=== PATIENT | female | born 1965 | race Caucasian/White ===

== ENCOUNTER 2020-12-08 18:02 | Emergency (ER) | payer MEDICARE, MEDICAID ==
[~2020-12-08] VITALS: Ht 165.1 cm; Wt 144.0 kg
[2020-12-08 18:06] VITALS: BP 126/73
--- NOTE | 2020-12-08 20:17 | NUR ---
COMMUNICATIONS PROFESSOR: PT SEEN BY ZION ANNE IN TRIAGE FOR PIT. PT REPORTS INCREASED SOB AND SWELLING OF BILATERAL LEGS.
--- NOTE | 2020-12-08 20:18 | NUR ---
DEVIN RN: TECH IN ROOM DOING EKG
[2020-12-08 21:37] LABS: BASOPHILS % (AUTO) 1 % (0-1); EOSINOPHILS % (AUTO) 2 % (1-7); LYMPHOCYTES % (AUTO) 9 % (22-44); MEAN CORPUSCULAR HEMOGLOBIN 27.3 pg (27.0-34.8); MEAN CORPUSCULAR HGB CONC 31.7 g/dL (32.4-35.8); MEAN PLATELET VOLUME 8.2 fL (7.4-10.4); MONOCYTES % (AUTO) 7 % (2-9); NEUTROPHILS % (AUTO) 81 % (42-75); PLATELET COUNT 348 x10^3/uL (130-400); RED CELL DISTRIBUTION WIDTH 19.3 % (9.6-15.2)
[2020-12-08 21:49] LABS: ALBUMIN 3.2 g/dL (3.4-5.0); ANION GAP 7 mmol/L (5-15); CALCIUM 9.1 mg/dL (8.5-10.1); CHLORIDE 107 mmol/L (98-107)
[2020-12-08 21:54] LABS: ALANINE AMINOTRANSFERASE 18 U/L (12-78); ALKALINE PHOSPHATASE 73 U/L (45-117); BILIRUBIN,TOTAL 0.4 mg/dL (0.2-1.0); CREATININE 0.76 mg/dL (0.55-1.02); TOTAL PROTEIN 8.4 g/dL (6.4-8.2); TROPONIN I < 0.015 ng/mL (0.000-0.045)
--- NOTE | 2020-12-08 22:16 | NUR ---
PT AMBULATORY BACK TO ROOM
--- NOTE | 2020-12-08 22:34 | NUR ---
PT REFUSING TO GET INTO [facility] REFUSING MONITORING. PT STS SHE WAS AT [facility] ON SUNDAY AND DX WITH INFECTION AND TOOK ONE PILL WHILE SHE WAS THERE BUT DID NOT GET MORE AFTER LEAVING. PT STS HER HEELS ARE CRACKED AND DRY AND WANTS SOMEONE TO TAKE CARE OF THEM.
--- NOTE | 2020-12-08 22:37 | NUR ---
PROVIDER AT BEDSIDE FOR EVAL
--- NOTE | 2020-12-08 23:07 | NUR ---
PT TO [facility] AT THIS TIME
--- NOTE | 2020-12-08 23:10 | NUR ---
US AT BEDSIDE AT THIS TIME
[2020-12-08] MEDS ORDERED: NEOSPORIN OINT. PKT 1 PACKET ONE (23:46)
--- NOTE | 2020-12-09 00:23 | NUR ---
Patient/Caregiver given discharge instructions and they have confirmed that they understand the instructions. Patient ambulatory with steady gait. NAD, all questions answered appropriately, denies additional needs at this time. No personal belongings left in room after discharge.
== END 2020-12-09 00:33 | disposition home or self-care (01) ==
LOC: ED 23:30
DX: L03.115 Cellulitis of right lower limb (principal); Z72.9 Problem related to lifestyle, unspecified; R00.0 Tachycardia, unspecified; R06.02 Shortness of breath
CPT/HCPCS: 36415; 71045; 80053; 83880; 84484; 85025; 93005; 93970; 99285